=== PATIENT | female | born 1990 ===

== ENCOUNTER 2023-02-03 00:36 | Inpatient (IN) | payer OTHER ==
[2023-02-03] MEDS ORDERED: Sodium Chloride 0.9% 10 ML Syringe FLUSH PRN (00:45)
[2023-02-03] MEDS ORDERED: Ondansetron 4 MG/2 ML SDV IVPUSH PRN (00:45)
[2023-02-03] MEDS ORDERED: Carboprost Tromethamine 250 MCG/1 mL Vial IM PRN (00:45)
[2023-02-03] MEDS ORDERED: Misoprostol 200 MCG Tab PO PRN (00:45)
[2023-02-03] MEDS ORDERED: Methylergonovine 0.2 MG/1 ML Amp IM PRN (00:45)
[2023-02-03] MEDS ORDERED: Lidocaine 1% 50 ML MDV INJECT PRN (00:45)
[2023-02-03] MEDS ORDERED: Sodium Chloride 0.9% 2.5 ML Syringe FLUSH PRN (00:45)
[2023-02-03] MEDS ORDERED: Water For Irrigation,Sterile 1,000 ML Container IRR PRN (00:45)
[2023-02-03] MEDS ORDERED: Sodium Chloride 0.9% 20 ML SDV IV PRN (00:45)
[2023-02-03] MEDS ORDERED: Tranexamic Acid 1,000 MG in Sodium Chloride 0.9% 100 ML IV PRN (00:45)
[2023-02-03] MEDS ORDERED: Terbutaline 1 MG/ML SDV SUBCUT PRN (00:45)
[2023-02-03] MEDS ORDERED: Oxytocin/0.9 % Sodium Chloride 30 UNIT/500 ML BAG IV SCH ×2 (00:45)
[2023-02-03] MEDS ORDERED: Nalbuphine HCl 10 MG/ 1ML Amp IVPUSH PRN (01:02)
[2023-02-03] MEDS ORDERED: Misoprostol 25 MCG (1/4 of 100 MCG) Tab VAG PRN (01:30)
[2023-02-03] MEDS ORDERED: Misoprostol 25 MCG (1/4 of 100 MCG) Tab PO PRN (01:30)
[2023-02-03 01:59] LABS: MEAN CORPUSCULAR HEMOGLOBIN 24.7 pg (27.0-32.0); MEAN CORPUSCULAR HGB CONC 31.3 g/dL (31.0-37.0); MEAN PLATELET VOLUME 9.1 fL (7.40-12.00); RED BLOOD CELL COUNT 4.05 M/uL (4.30-5.90); WHITE BLOOD CELL COUNT,WBC 13.48 K/uL (4.0-11.0)
[2023-02-03] MEDS: Misoprostol 25 MCG (1/4 of 100 MCG) Tab PO PRN ×3 (05:54→14:09)
[2023-02-03] MEDS: Misoprostol 25 MCG (1/4 of 100 MCG) Tab VAG PRN ×3 (05:54→14:09)
[2023-02-03] MEDS: Lactated Ringers 1,000 ML IV SCH ×2 (18:03→20:28)
[2023-02-03] MEDS ORDERED: Ropivacaine/PF 400 MG/200 ML PCA ONE (18:38)
[2023-02-03] MEDS ORDERED: Bupivacaine 0.5% 10 ML SDV ONE (18:38)
[2023-02-03] MEDS ORDERED: Phenylephrine HCl 0.5 MG/5 ML AMP IVPUSH PRN (19:04)
[2023-02-03] MEDS ORDERED: ePHEDrine 50 MG/ML SDV IVPUSH PRN ×2 (19:04)
[2023-02-03] MEDS ORDERED: Ropivacaine HCl/PF 400 MG in Premix Bag 1 BAG EPIDUR SCH (19:15)
[2023-02-04] MEDS ORDERED: Lanolin 100% Cream 7 GM Tube TOP PRN (03:07)
[2023-02-04] MEDS ORDERED: Benzocaine/Menthol 20%-0.5% Spray 78 GM Cannister TOP PRN (03:07)
[2023-02-04] MEDS ORDERED: oxyCODONE 5 MG Tab PO PRN (03:07)
[2023-02-04] MEDS ORDERED: Witch Hazel Medicated Pads 40/Jar TOP PRN (03:07)
[2023-02-04] MEDS ORDERED: Ibuprofen 400 MG Tab PO PRN (03:07)
[2023-02-04] MEDS ORDERED: Acetaminophen 500 MG Tab PO PRN ×2 (03:07)
[2023-02-04] MEDS ORDERED: Bisacodyl 10 MG Supp RECTAL PRN (03:07)
[2023-02-04] MEDS: Ibuprofen 800 MG Tab PO PRN ×3 (07:23→20:03)
[2023-02-04] MEDS: Acetaminophen 500 MG Tab PO PRN ×2 (12:54→16:53)
[2023-02-04] MEDS: Docusate Sodium 100 MG Cap PO PRN (20:03)
[2023-02-05] MEDS: Ibuprofen 800 MG Tab PO PRN ×3 (01:35→20:22)
[2023-02-05] MEDS: Acetaminophen 500 MG Tab PO PRN ×2 (01:35→08:19)
[2023-02-05 06:18] LABS: HEMATOCRIT 23.7 % (36.0-46.0); HEMOGLOBIN 7.3 g/dL (12.0-16.0)
[2023-02-05] MEDS: Docusate Sodium 100 MG Cap PO PRN ×2 (08:19→20:23)
[2023-02-06] MEDS: Ibuprofen 800 MG Tab PO PRN (08:11)
[2023-02-06] MEDS: Acetaminophen 500 MG Tab PO PRN (08:12)
[2023-02-06] MEDS: Docusate Sodium 100 MG Cap PO PRN (08:18)
== END 2023-02-06 11:05 | disposition home or self-care (01) | DRG 807 ==
LOC: MW.OBCHECK 00:36 → MW.OB 00:37 → MW.OBCHECK 00:45 → OBSVTOIN 02-04 02:50 → MW.OB 02-04 06:55
PROVIDERS: ADMIT Obstetrics & Gynecology; ATTEND Obstetrics & Gynecology
PROC: 10E0XZZ Delivery of Products of Conception, External Approach (ICD-10-PCS; principal; 2023-02-04)
PROC: 0KQM0ZZ Repair Perineum Muscle, Open Approach (ICD-10-PCS; 2023-02-04)
PROC: 3E033VJ Introduction of Other Hormone into Peripheral Vein, Percutaneous Approach (ICD-10-PCS; 2023-02-04)
PROC: 3E0P7VZ Introduction of Hormone into Female Reproductive, Via Natural or Artificial Opening (ICD-10-PCS; 2023-02-04)
PROC: 10907ZC Drainage of Amniotic Fluid, Therapeutic from Products of Conception, Via Natural or Artificial Opening (ICD-10-PCS; 2023-02-04)
PROC: 3E0R3BZ Introduction of Anesthetic Agent into Spinal Canal, Percutaneous Approach (ICD-10-PCS; 2023-02-04)
PROC: 00HU33Z Insertion of Infusion Device into Spinal Canal, Percutaneous Approach (ICD-10-PCS; 2023-02-04)
DX: O70.1 Second degree perineal laceration during delivery (principal); Z37.0 Single live birth; Z3A.39 39 weeks gestation of pregnancy
CPT/HCPCS: 36415; 51702; 59025; 59409; 85014; 85018; 85027; 86592; 86850; 86900; 86901; A9270-GY; J2590; J2795; J3490; J7120